=== PATIENT | male | born 1950 | race Caucasian/White ===

== ENCOUNTER 2016-06-16 06:31 | Emergency (ER) | payer OTHER ==
[2016-06-16] MEDS ORDERED: NS 1,000 ML IV ONE (06:35)
[2016-06-16] MEDS ORDERED: ASPIRIN 81 MG CHEWABLE TAB PO ONE (06:35)
--- NOTE | 2016-06-16 06:45 | CPEKG ---
Heart Rate: 70 RR Interval: 857 P-R Interval: 236 QRSD Interval: 98 QT Interval: 424 QTC Interval: 458 P Escalante: 17 QRS Escalante: -52 T Wave Escalante: 40 EKG Severity - ABNORMAL ECG - EKG Impression: ATRIAL-PACED COMPLEXES EKG Impression: FIRST DEGREE AV BLOCK EKG Impression: LEFT ANTERIOR FASCICULAR BLOCK EKG Impression: CONSIDER ANTERIOR INFARCT EKG Impression: BORDERLINE T ABNORMALITIES, ANTERIOR LEADS EKG Impression: PREVIOUS ECG WITH BOTH ATRIAL AND VENTRICULAR PACING Electronically Signed By: Harinder Howe 21-Jun-2016 16:37:17
[2016-06-16 06:57] LABS: % IMMATURE GRANULYOCYTES 0.4 % (0.0-1.1); ABSOLUTE IMMATURE GRANULOCYTES 0.02 10^3/uL (0.00-0.10); ADD DIFF? NO; ADD MORPH? NO; ADD SCAN? NO; ATYPICAL LYMPHOCYTE FLAG 0 (0-99); FRAGMENT RBC FLAG 0 (0-99); HEMATOCRIT 48.7 % (40.0-51.0); HEMOGLOBIN 16.3 g/dL (13.7-17.5); LEFT SHIFT FLG 0 (0-99); LIPEMIA HEMOLYSIS FLAG 80 (0-99); MEAN CELL HEMOGLOBIN 30.8 pg (27.9-34.1); MEAN CELL HEMOGLOBIN CONCENTR. 33.5 g/dL (32.4-36.7); MEAN CELL VOLUME 92.1 fL (81.5-99.8); MEAN PLATELET VOLUME 11.3 fL (8.7-11.7); PLATELET CLUMPS FLAG 0 (0-99); PLATELET COUNT 129 10^3/uL (150-400); RED BLOOD CELL COUNT 5.29 10^6/uL (4.40-6.38); RED CELL DISTRIBUTION WIDTH 12.5 % (11.5-15.2)
[2016-06-16 07:09] LABS: ANION GAP 13 mEq/L (8-16); CALCIUM 9.5 mg/dL (8.5-10.4); CARBON DIOXIDE 27 mEq/l (22-31); CHLORIDE 106 mEq/L (97-110); CREATININE 1.1 mg/dL (0.7-1.3); GLOMERULAR FILTRATION RATE > 60; GLUCOSE 122 mg/dL (70-100); SODIUM 146 mEq/L (134-144)
[2016-06-16 07:20] LABS: INR 2.25 (0.83-1.16); PROTIME(PATIENT) 25.1 SEC (12.0-15.0)
[2016-06-16 07:21] LABS: APTT 32.4 SEC (23.0-38.0)
--- NOTE | 2016-06-16 07:25 | EDPHY ---
H & P Stated Complaint: CHEST DISCOMFORT OFF AND ON FOR PAST 2 WEEKS. TAKING NTG SOME HELP Time Seen by Provider: 06/16/16 06:53 - Personal History Current Tetanus/Diphtheria Vaccine: Unsure Current Tetanus Diphtheria and Acellular Pertussis (TDAP): Unsure - Medical/Surgical History Hx Asthma: No Hx Chronic Respiratory Disease: No Hx Diabetes: No Hx Cardiac Disease: Yes Hx Renal Disease: No Hx Cirrhosis: No Hx Alcoholism: No Hx HIV/AIDS: No Hx Splenectomy or Spleen Trauma: No Other PMH: PACEMAKER, SSS(SICK SINUS SYDROM), CAMRYN - Social History Smoking Status: Former smoker Constitutional: Initial Vital Signs Temperature (C) 36.6 C 06/16/16 06:35 Heart Rate 72 06/16/16 06:35 Respiratory Rate 16 06/16/16 06:35 Blood Pressure 148/91 H 06/16/16 06:35 O2 Sat (%) 95 06/16/16 06:35 O2 Delivery Mode Room Air O2 (L/minute) 2 Allergies/Adverse Reactions: No Known Allergies Allergy (Unverified 06/16/16 06:49) Home Medications: Medication Instructions Recorded Nitroglycerin [Nitrostat 0.4 mg 0.4 mg SL PRN PRN 08/24/13 (RX)] Simvastatin [Zocor 20 mg (RX)] 80 mg PO DAILY18 08/24/13 Sotalol HCl [Betapace 80 MG (RX)] 80 mg PO DAILY 08/24/13 Sotalol HCl [Sotalol] 120 mg PO HS 08/24/13 Verapamil ER [Calan Sr] 180 mg PO BID 08/24/13 Warfarin Sodium [Coumadin 3MG (RX)] 3 mg PO SUMOTUWETHSA@1600 08/24/13 Warfarin Sodium [Coumadin 4MG (RX)] 4 mg PO SUMOTUWETHSA@159908/24/13 Warfarin Sodium [Coumadin 5MG (RX)] 5 mg PO FR@159908/24/13 Medical Decision Making ED Course/Re-evaluation: CHIEF COMPLAINT: "I've been having chest pains on and off for a couple weeks" HISTORY OF PRESENT ILLNESS: The patient is an anticoagulated 65 y/o male, with a history of angina, complaining of intermittent anterior left-sided chest pain for the last few weeks. He has a history of sick sinus syndrome, DVT and PE, hyperlipidemia, hypertension, and 50% stenosis of his LAD on catheterization in 2009. He had associated nausea a few days ago and mild shortness of breath when standing up. His pain is rated 5/10 when present and described as "burning" underneath his pacemaker. He usually waits for symptoms to last at least 15-20 minutes before taking nitro, which alleviated most of his pain. Exertion does not seem to precipitate his symptoms. He contacted his lace finisher's office yesterday and they referred him to ED, but he was too busy with home tasks to come in until this morning. REVIEW OF SYSTEMS: A 10 point review of systems was performed and is negative with the exception of the elements mentioned in the history of present illness. PHYSICAL EXAM: General Appearance: Alert, well hydrated, appropriate, and non-toxic appearing. Head: Atraumatic without scalp tenderness or obvious injury Eyes: Pupils equal, round, reactive to light and accommodation, EOMI, no trauma , no injection. Ears: Clear bilaterally, no perforation, normal landmarks Nose: Atraumatic, no rhinorrhea, clear. Throat: There is no erythema or exudates, no lesions, normal tonsils, mucus membranes moist. Neck: Supple, non-tender, no lymphadenopathy. Respiratory: No retractions, no distress, no wheezes, and no accessory muscle use. Lungs are clear to auscultation bilaterally. Cardiovascular: Regular rate and rhythm, no murmurs, rubs, or gallops. Bilateral radial pulses intact. Good capillary refill all extremities. Gastrointestinal: Abdomen is soft, non-tender, non-distended, no masses, no rebound, no guarding, no peritoneal signs. Musculoskeletal: Normal active ROM of all extremities, atraumatic. Neurological: Alert, appropriate, and interactive. The patient has normal DTRs and non-focal cranial nerves, motor, sensory, and cerebellar exam. Skin: No rashes, good turgor, no nodules on palpation. PAST MEDICAL HISTORY: Pacemaker 2004 and replaced 2 years ago for sick sinus syndrome, angina, DVT and PE currently on Coumadin, hyperlipidemia, hypertension Bag Machine Set Up Operator: Dr. Cabrera PAST SURGICAL HISTORY: Heart catheterization with intervention 2009, pacemaker implantation Prior medical records reviewed including admission 12/16/09 for chest pain and cardiac procedure notes for catheterization during the same visit. SOCIAL HISTORY: Lives in [place] DIAGNOSTICS/PROCEDURES/CRITICAL CARE TIME: The 12 lead EKG was interpreted by myself. Atrial paced rhythm rate 70. See hard copy and/or "tracemaster" electronic copy for interpretation. Study: Chest x-ray Indication: Pain Results: Chest x-ray was obtained. The results of the study are nothing acute. The study was read by the radiologist, Dr. Dobson. I viewed the images myself on the PACS system. DIFFERENTIAL DIAGNOSIS: The differential diagnosis for the patient's chest pain included but was not limited to myocardial ischemia, pulmonary embolus, chest wall pain, pleural inflammation, and pulmonary infectious causes. MEDICAL DECISION MAKING: This is a 65 y/o male with several cardiac risk factors and a history of angina presenting to the ED with a 3-week history of intermittent burning chest pain that improves with nitro. A catheterization in 2009 showed 50% stenosis of his LAD. His exam is unremarkable. Plan for cardiac and respiratory work up including EKG, chest x-ray, and labs including d-dimer and troponin. Patient's EKG shows a paced rhythm. His labs show a therapeutic INR and negative d-dimer and troponin. His chest x-ray is unremarkable. This patient needs a provocative cardiac work up. Plan to consult his lace finisher at [facility] to determine disposition. 0900: Consulted with Dr. Peterson, cardiology, as we were unable to get in contact with [facility] after multiple pages. He will assess patient in the ED. 1340: Dr. Peterson assessed patient in the ED. He is comfortable with patient following up with cardiology as an outpatient. Patient agrees with plan. Return precautions given. - Data Points Laboratory Results: Laboratory Results 06/16/16 06:40 06/16/16 06:40 06/16/16 06/16/16 06/16/16 06:40 06:40 06:40 WBC 5.00 10^3/uL 10^3/uL (3.80-9.50) RBC 5.29 10^6/uL 10^6/uL (4.40-6.38) Hgb 16.3 g/dL g/dL (13.7-17.5) Hct 48.7 % % (40.0-51.0) MCV 92.1 fL fL (81.5-99.8) MCH 30.8 pg pg (27.9-34.1) MCHC 33.5 g/dL g/dL (32.4-36.7) RDW 12.5 % % (11.5-15.2) Plt Count 129 10^3/uL L 10^3/uL (150-400) MPV 11.3 fL fL (8.7-11.7) Neut % (Auto) 63.6 % % (39.3-74.2) Lymph % (Auto) 23.8 % % (15.0-45.0) [place] % (Auto) 7.8 % % (4.5-13.0) Eos % (Auto) 3.6 % % (0.6-7.6) Baso % (Auto) 0.8 % % (0.3-1.7) Nucleat RBC Rel Count 0.0 % % (0.0-0.2) Absolute Neuts (auto) 3.18 10^3/uL 10^3/uL (1.70-6.50) Absolute Lymphs (auto) 1.19 10^3/uL 10^3/uL (1.00-3.00) Absolute Monos (auto) 0.39 10^3/uL 10^3/uL (0.30-0.80) Absolute Eos (auto) 0.18 10^3/uL 10^3/uL (0.03-0.40) Absolute Basos (auto) 0.04 10^3/uL 10^3/uL (0.02-0.10) Absolute Nucleated RBC 0.00 10^3/uL 10^3/uL (0-0.01) Immature Gran % 0.4 % % (0.0-1.1) Immature Gran # 0.02 10^3/uL 10^3/uL (0.00-0.10) PT 25.1 SEC H SEC (12.0-15.0) INR 2.25 H (0.83-1.16) APTT 32.4 SEC SEC (23.0-38.0) D-Dimer < 0.27 ug/mLFEU ug/mLFEU (0.00-0.50) Sodium 146 mEq/L H mEq/L (134-144) Potassium 4.0 mEq/L mEq/L (3.5-5.2) Chloride 106 mEq/L mEq/L (97-110) Carbon Dioxide 27 mEq/l mEq/l (22-31) Anion Gap 13 mEq/L mEq/L (8-16) BUN 15 mg/dL mg/dL (7-23) Creatinine 1.1 mg/dL mg/dL (0.7-1.3) Estimated GFR > 60 Glucose 122 mg/dL H mg/dL (70-100) Calcium 9.5 mg/dL mg/dL (8.5-10.4) Creatine Kinase 172 IU/L IU/L (0-224) CK-MB (CK-2) Fraction 2.39 ng/mL ng/mL (0-3.19) Troponin I < 0.012 ng/mL ng/mL (0-0.034) NT-Pro-B Natriuret Pep 150 pg/mL H pg/mL (0-125) Medications Given: Discontinued Medications Aspirin (Aspirin) 324 mg PO EDNOW ONE Stop: 06/16/16 06:36 Last Admin: 06/16/16 06:57 Dose: 324 mg Sodium Chloride (Ns) 1,000 mls @ 0 mls/hr IV ONCE ONE PRN Reason: Wide Open Stop: 06/16/16 06:36 Last Admin: 06/16/16 06:56 Dose: 1,000 mls Departure - Departure Disposition: Home, Routine, Self-Care Clinical Impression: Chest pain Qualifiers: Chest pain type: other chest pain Qualified Code(s): R07.89 - Other chest pain Condition: Good Instructions: Chest Pain (ED) Additional Instructions: Follow up with your lace finisher on Saturday. Return to the ED for any worsening of symptoms. Referrals: Scott Israel MD [Primary Care Provider] - As per Instructions Adonay Cabrera MD [Medical Doctor] - As per Instructions Report Scribed for: Stalin Borden Report Scribed by: Elina Goodson Date of Report: 06/16/16 Time of Report: 07:25
[2016-06-16 07:29] LABS: CREATINE KINASE-MB FRACTION 2.39 ng/mL (0-3.19); TROPONIN I < 0.012 ng/mL (0-0.034)
[2016-06-16 11:31] VITALS: PULSE 80; RESP 14; TEMP 98.4
[2016-06-16 14:14] VITALS: BP 140/90; O2SAT 94
--- NOTE | 2016-06-16 15:29 | GCON ---
[f rep st] CONSULTATION CARDIOLOGY CONSULTATION DATE OF CONSULTATION: 06/16/2016 REASON FOR CONSULTATION: Chest pain. HISTORY OF PRESENT ILLNESS: The patient is a pleasant 65-year-old gentleman who is a patient of Dr. Cecilio Carmichael at [facility] who has a known history of paroxysmal atrial fibrillation, sick sinus syndrome, status post permanent pacemaker, hypertension, hyperlipidemia. The patient presented to [facility] today with a history of atypical left anterior chest burning discomfort around the site of his pacemaker. He denies any exacerbating factors. He states these episodes are random and occur at rest. These episodes are not associated with exertion. No associated shortness of breath, dyspnea, PND, orthopnea. He has no associated nausea, vomiting, or diaphoresis. He does take sublingual nitroglycerin if the pain persists for more than 5-10 minutes. He does note that a 1-2 sublingual nitroglycerin spaced apart by 5 minutes will often completely alleviate his symptoms within 5 minutes. In reviewing his chart, I do note that he had been using nitroglycerin approximately once a week. He does confirm this with me today that he has had similar left burning discomfort over the site of his pacemaker for at least the last year. He states he has been using nitroglycerin approximately once a week which alleviates his symptoms. These episodes over the last year have not been associated with exertion. He has been compliant with his medications. He is hemodynamically stable. He remains in sinus rhythm at 67 beats per minute on telemetry at the time of my exam. He denies any complaints of PND, orthopnea, or lower extremity edema. He has no complaints of exertional intolerance. He does note some mild increased fatigue over the last 1-2 weeks. He has no complaints of palpitations, dizziness, lightheadedness, or syncope. He has no complaints of abdominal pain. He did have 1 isolated episode of vomiting on . No sick contacts. He has no complaints of hematuria or blood in his stool. Currently, at the time of my exam, he is resting comfortably without distress. PAST MEDICAL HISTORY: 1. Paroxysmal atrial fibrillation. Rhythm control strategy on sotalol 80 mg in the a.m.,120 mg in the p.m. 2. Sick sinus syndrome, status post permanent pacemaker implantation 2004. 3. Hypertension. 4. Hyperlipidemia. 5. History of deep vein thrombosis as well as pulmonary emboli x2 without any known history of hypercoagulable state on chronic long-term Coumadin therapy. FAMILY HISTORY: No family history of premature coronary artery disease. His mother did from a myocardial infarction in her late 80s. His father from Alzheimer's. He has 2 sisters and a brother with no known heart disease. SOCIAL HISTORY: He is . 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 He is a former smoker. He smoked for 6 years, quit in 1973. He has 2 children ages 30-35. He is . He exercises approximately 3-4 times a week with going on regular walks. MEDICATIONS ON ADMISSION: Coumadin, sotalol 80 mg in the a.m., 120 mg in the p.m.; bisoprolol 5 mg daily. Losartan 25 mg daily and simvastatin 80 mg daily. ALLERGIES: No known drug allergies, although he does develop an WINTER inhibitor- induced cough. EXAMINATION: VITAL SIGNS: Blood pressure 140/90, heart rate of 80 in sinus rhythm, respiratory rate of 14, oxygen saturation 94% on room air, temperature 36.9. GENERAL: He is awake, alert, oriented, appropriate, in no apparent distress. There is no evidence of JVP or carotid bruits. LUNGS: Clear to auscultation bilaterally. CARDIAC: S1, S2. Regular rate and rhythm. No murmurs, rubs, or gallops. PMI is not displaced. Pacemaker site is nontender to palpation. There is no evidence of erythema or edema. Is it is not warm to touch and nontender to palpation. ABDOMEN: Soft, nontender. There is no pulsatile mass or abdominal bruit. He has 2+ dorsalis pedis and posterior tibial pulses bilaterally. There is no evidence of cyanosis, clubbing or edema. LAB WORK: ECG demonstrates normal sinus rhythm with a first-degree AV block, left anterior fascicular block and poor R-wave progression. He has nonspecific T-wave changes in the right precordial leads. Chest x-ray demonstrates no acute cardiopulmonary process. Lab work demonstrates white blood cell count of 16.3, hematocrit of 48.7 and platelets of 129. INR is 2.25. Sodium of 146, potassium 4.0, chloride 106, bicarb 27, BUN 15, creatinine 1.1. Glucose 122, CK-MB 2.39. Troponin less than 0.012. N-terminal proBNP 150. IMPRESSION: 1. Atypical chest discomfort responsive to sublingual nitroglycerin. 2. Known history of mild nonobstructive coronary artery disease on diagnostic left heart catheterization in 2009. 3. Hypertension. 4. Hyperlipidemia. 5. Paroxysmal atrial fibrillation, rhythm control strategy with sotalol. 6. Pacemaker secondary to sick sinus syndrome. 7. 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 DISCUSSION: The patient is a pleasant 65-year-old gentleman with known nonobstructive coronary artery disease with focal stenosis in proximal LAD and diagnostic left heart catheterization in 2009. He did undergo a normal pharmacologic nuclear stress test on September 06, 2015, demonstrating normal perfusion and function. He presents today with atypical pain. It is responsive to sublingual nitroglycerin. He has had similar discomfort over the last year and has been taking nitroglycerin on an average of once per week. With normal nuclear stress test approximately 9 months ago. Unremarkable lab work. No significant change in ECG and patient being currently asymptomatic with atypical symptoms. I do not think that he requires admission at this time. I would recommend that he is seen by his primary campus chaplain, Dr. Carmichael early next week at [facility]. Would recommend further functional studies at that time. In the interim would recommend he return home on his current medical therapy without changes. I have encouraged him to do contact [facility] office over the weekend if he has further concerns or return to the emergency room. PLAN: 1. Recommend patient be discharged home from the emergency room on current medical therapy. 2. Recommend patient be seen by his primary campus chaplain, Dr. Carmichael at [facility] early next week for further risk stratification. 3. Patient should return to the ER. Contact [facility] if symptoms progress over the course of the weekend. 45 minutes spent coordinating care and consultation with Mr. Centeno /[id number]/MODL MTDD
== END 2016-06-16 14:13 | disposition home or self-care (01) ==
DX: R07.89 Other chest pain (principal); I10 Essential (primary) hypertension; Z79.01 Long term (current) use of anticoagulants; Z87.891 Personal history of nicotine dependence; Z95.0 Presence of cardiac pacemaker

== ENCOUNTER → 2016-12-31 | Outpatient (CLI) | payer OTHER ==
[~2016-12-31] MED LIST: IOPAMIDOL (ISOVUE 370) 100 ML BTL IV ONE
== END ==
LOC: FIMAGING 10:42
PROVIDERS: ATTEND Physician Assistant Medical
DX: G50.0 Trigeminal neuralgia (principal)
CPT/HCPCS: Q9967